=== PATIENT | female | born 1975 | race Hispanic/Latino ===

== ENCOUNTER 2021-10-10 07:33 | Day surgery (SDC) | payer BC ==
[2021-10-09 13:22] LABS: Absolute Lymphocytes (CBC) 1.3 K/uL (0.7-4.9); Basophils % 0.8 % (0-1.3); Hematocrit 30.1 % (36.0-45.0); Lymphocytes % 11.4 % (15.3-44.8); MPV 11.1 fL (7.6-11.3); RBC Red Blood Cell Count 3.34 M/uL (3.86-4.86)
[2021-10-09 13:28] LABS: Protime INR 1.15
[2021-10-09 14:16] LABS: Potassium 2.8 mmol/L (3.5-5.1)
[~2021-10-10 07:33] MED LIST: CEFAZOLIN/SWI 2gm 2 GM/20 ML SYR IV SCH
[2021-10-10] MEDS ORDERED: NA CHLORIDE 0.9% 500 ML ONE (07:57)
[2021-10-10] MEDS ORDERED: CEFAZOLIN/SWI 2gm 2 GM/20 ML SYR ONE (07:58)
[2021-10-10] MEDS ORDERED: KCL 20 MEQ/100 mL IVPB 20 MEQ/100 ML BAG IV SCH (08:30)
[2021-10-10] MEDS ORDERED: FENTANYL CITR 100 MCG/2 ML ONE ×2 (08:32→09:52)
[2021-10-10] MEDS ORDERED: propofoL 200 MG/20 ML VIAL IV ONE (08:32)
[2021-10-10] MEDS ORDERED: LIDOCAINE 1% MPF 5 ML VIAL ONE (08:32)
[2021-10-10] MEDS ORDERED: ROCURONIUM 50 MG/5 ML VIAL IV ONE (08:32)
[2021-10-10] MEDS ORDERED: BUPIVACAINE 0.25% PF 30 ML VIAL ONE (08:35)
[2021-10-10] MEDS ORDERED: NA CHLORIDE 0.9% 1,000 ML ONE (08:37)
[2021-10-10] MEDS ORDERED: NA CHLORIDE 0.9% 100 ML IV ONE (08:37)
[2021-10-10] MEDS ORDERED: SUCCINYLCHOLINE 20 MG/ML (10 ML) IV ONE (08:43)
[2021-10-10] MEDS ORDERED: HEPARIN 500 UNIT/5 ML SYR IV ONE (08:49)
[2021-10-10] MEDS ORDERED: NS 0.9% VIAL 10 ML ONE (09:27)
[2021-10-10] MEDS ORDERED: EPHEDRINE SULF 50 MG/ML VIAL ONE (09:27)
[2021-10-10] MEDS: HEPARIN 5000 UNIT/ML 1 ML VIAL ONE ×2 (09:38→09:40)
[2021-10-10] MEDS ORDERED: dexAMETHasone 10 MG/ML VIAL ONE (09:53)
[2021-10-10] MEDS ORDERED: ONDANSETRON 4 MG/2 ML VIAL ONE (09:53)
[2021-10-10] MEDS ORDERED: GLYCOPYRROLATE 0.2 MG/ML SYR ONE (10:08)
[2021-10-10] MEDS ORDERED: SUGAMMADEX SODIUM 200 MG/2 ML VIAL IV ONE (10:11)
--- NOTE | 2021-10-10 10:24 | P.OP ---
Preoperative diagnosis: End Stage Renal Disease Postoperative diagnosis: End Stage Renal Disease Primary procedure: Placement of RIGHT internal jugular tunnelled hemodialysis catheter Secondary procedure: Laparoscopic Exploration, unable to place Peritoneal dialysis catheter Anesthesia: GETA + Local Estimated blood loss: <20cc Specimen: none Findings: Ventricular tachycardia thoughout case, precluded safe laparoscopy Complications: None Implants: 19cm Hemosplit tunnelled hemodialysis catheter Transferred to: Recovery Room Condition: Good
--- NOTE | 2021-10-10 10:34 | RAD REPORT ---
EXAM DESCRIPTION: RAD - Fluoroscopy <1 Hour - 10/10/2021 10:08 am CLINICAL HISTORY: INSERT HEMODIALYSIS CATH COMPARISON: No comparisons FINDINGS/IMPRESSION: Twenty-two intraoperative fluoroscopic images were submitted showing cannulatio n of the right internal jugular vein and placement of a right IJ approach hemodialysis catheter. The catheter tip overlies the SVC. Defibrillator also noted.
--- NOTE | 2021-10-10 10:38 | RAD REPORT ---
EXAM DESCRIPTION: RAD - Chest Single View - 10/10/2021 10:33 am CLINICAL HISTORY: S/P HEMODIALYSIS CATH PLACEMENT, CHECK FOR PNEUMO COMPARISON: No comparisons FINDINGS: Lines: Right IJ approach hemodialysis catheter with distal tip overlying the SVC. Defibril lator present. Lungs: No evidence of edema or pneumonia. Low lung volumes. Pleural: No significant pleural effusions or pneumothorax. Cardiac: Cardiomegaly. Bones: No acute fractures. Other: IMPRESSION: No pneumothorax following placement of a right IJ approach dialysis catheter. The cathet er tip overlies the SVC. The lungs are clear.
[2021-10-10] MEDS ORDERED: ACETAMINOPHEN 500 MG TAB ONE (12:14)
[2021-10-10 13:33] VITALS: BP 115/94; TEMP 97.8; O2SAT 93
--- NOTE | 2021-10-10 13:33 | OP ---
Date of Procedure: 10/10/2021 Surgeon: Last Palmer MD, Preoperative Diagnosis: End-stage renal disease in need of dialysis. Postoperative Diagnosis: End-stage renal disease in need of dialysis. Procedure Performed: 1.Placement of right internal jugular tunneled hemodialysis catheter using fluoroscopy and ultrasoun d guidance. 2.Laparoscopic abdominal exploration for the purpose of placement of a peritoneal dialysis catheter, however, unable to place due to patient having cardiac arrhythmia. Anesthesia: General endotracheal plus local with 0.25% Marcaine. Estimated Blood Loss: Less than 20 mL. Specimen: None. Findings: The patient had persistent episodes of intermittent ventricular tachycardia throughout the case. When the patient was placed in Trendelenburg position and micro wire was advanced, the patien t had episodes of arrhythmia including ventricular tachycardia. Even using fluoroscopic guidance, pu lling the wire back was required as the patient had appeared to have hypersensitivity to any wire adv ancement anywhere near the superior vena cava. Upon insufflation, I was unable to proceed because the laparoscopic exploration which proceeded with 15 mmHg of pneumoperitoneum caused another episode of intermittent ventricular tachycardia. As such, I lowered the pneumoperitoneum and it persisted. I completely decompressing the abdomen and it reso lved. Multiple attempts at very low pneumoperitoneum were unsuccessful placing this catheter due to recurrent episodes of ventricular tachycardia. Complications: None immediate. Implants: A 19 cm HemoSplit tunneled hemodialysis catheter placed in the right internal jugular posi tion. The patient transferred to recovery room in stable condition/good condition. Procedure In Detail: After informed was obtained, the patient was brought to the operating room, pre pped and draped in the usual sterile fashion. After adequate anesthesia was achieved, the patient wa s placed in steep Trendelenburg position. I investigated the right internal jugular vein and found i t to be patent. At this point, I ultimately placed the micro introducer needle into the internal jug ular vein under direct visualization without evidence of complication. The microwire was advanced at this point and ventricular tachycardia was appreciated upon advancement of the wire using fluoroscop ic guidance. The wire was pulled back to the confluence of the SVC. The wire appeared not to stimul ate the arrhythmia when placed into the distal aspect of the SVC away from the atrium. As such, I de cided to proceed at this point. I made a small jamison incision at the insertion site, placed the intro ducer sheath at this point. At this point, the standard wire was advanced. Once again, the arrhythm ia was appreciated with advancement of the wire beyond the distal SVC and as such, the wire was held in this position throughout the procedure. At this point, I created a tunnel track over the chest wa ll going over the clavicle on the right chest wall side, the 19 cm HemoSplit catheter. I brought the HemoSplit catheter out through the insertion site after making a small jamison incision and sequential dilatation was performed in the jugular vein without incident or complication. The introducer sheath was then placed. The wire was removed and the catheter was placed in the jugular vein and fluorosco py confirmed position above the SVC and there was no arrhythmia at this point. Therefore, at this po int, the catheter was flushed and withdrew dark red nonpulsatile blood, which was returned throughout the procedure. I then flushed the ports with saline and then packed it with heparin super flush 600 0 units in 4 cc and packed 2 cc per port. At this point, the catheter was secured to the skin. All skin incisions were copiously irrigated and closed with interrupted 3-0 nylon suture and the catheter was in good position without any additional arrhythmia. At this point, I turned my attention to the placement of the peritoneal dialysis catheter. I stenciled the patient's abdomen based on the pre-s tenciling of the [employer] standard peritoneal dialysis catheter. I made a small jamison incision in the le ft upper quadrant. After appropriately anesthetizing the skin, I introduced a 5 mm 0-degree optical trocar without incident or complication. Upon insufflation of 15 mmHg, the patient started developin g episodes of recurrent ventricular tachycardia despite multiple efforts at positioning the patient h ead down, head up. Multiple positioning attempts did not resolve this. I tried lower levels or pneu moperitoneum to 12, 10, and even 5. I was unable to place the catheter because the patient only shayna milo from the arrhythmia with complete evacuation of all abdominal pneumoperitoneum. With the troca r in place, the patient's arrhythmia resolved and she went back to normal sinus rhythm and as such, I decided that it would be unsafe to proceed at this point, and therefore, I abandoned this procedure. After completely desufflating the abdomen, I removed the trocar, irrigated the skin incision, and c losed it with a 2-0 nylon suture and a sterile dressing placed over top. Of note, the patient did flores ve intraabdominal adhesions from the omentum to the midline abdominal wall as well as in the left low er quadrant with a loop of bowel to the anterior abdominal wall in the pelvis. The patient tolerated the patient procedure otherwise without incident or complication and was transferred to PACU in stab le/good condition with arrhythmia having completely resolved. She will be monitored in the PACU for an extended period time. All counts were correct at the end of the case. Chest x-ray will be perfor med PACU as well. JAYLEN/ERIC Voice ID: [id number] Report ID: [id number]
--- NOTE | 2021-10-11 12:40 | EKG ---
Test Date: 2021-10-09 Test Time: 13:24:51 Public Relations Senior Associate: DANAY MEASUREMENT RESULTS: Intervals: Rate: 66 MN: 184 QRSD: 106 QT: 604 QTc: 633 Gregory: P: 54 MN: 184 QRS: 46 T: -52 INTERPRETIVE STATEMENTS: Normal sinus rhythm Incomplete right bundle branch block T wave abnormality, consider inferior ischemia T wave abnormality, consider anterolateral ischemia Prolonged QT Abnormal ECG No previous ECG available for comparison Electronically Signed On 10-11-21 12:35:57 RECORDING ENGINEER by Abhay Denny
== END 2021-10-10 14:10 | disposition home or self-care (01) ==
LOC: OR 07:33
PROVIDERS: ATTEND Surgery
PROC: 05HM33Z Insertion of Infusion Device into Right Internal Jugular Vein, Percutaneous Approach (ICD-10-PCS; principal; 2021-10-10 08:45)
PROC: 0WJF4ZZ Inspection of Abdominal Wall, Percutaneous Endoscopic Approach (ICD-10-PCS; 2021-10-10 08:45)
DX: N18.6 End stage renal disease (principal); K66.0 Peritoneal adhesions (postprocedural) (postinfection); Z20.822 Contact with and (suspected) exposure to COVID-19
CPT/HCPCS: 93005; 85025; 80048; 36415 ×2; 81025; 84132 ×2; 85610; 85730; 71045; 76000; 36558; 49320; U0003; J2704; J0330; J1644 ×2; J3480; J3010 ×2; J1100; J1642; J0690; J7040; J7030; J2405; C1752